=== PATIENT | female | born 1985 | race Caucasian/White ===

== ENCOUNTER 2017-05-01 15:05 | Emergency (ER) | payer MEDICAID ==
--- NOTE | 2017-05-01 15:46 | ER Document Report ---
ED GI/ - General Information source: Patient TRAVEL OUTSIDE OF THE [place] IN LAST 30 DAYS: No - HPI Patient complains to provider of: Abdominal pain, Diarrhea, Vomiting Onset: This morning Timing/Duration: Waxing and waning Associated symptoms: Other - see above <WILY FENTON - Last Filed: 05/01/17 17:42> <AJLEN BERMAN - Last Filed: 05/01/17 23:04> - General Chief Complaint: Abdominal Pain Stated Complaint: NAUSEA Time Seen by Provider: 05/01/17 15:42 Notes: Patient is a 31 year old female who presents to the ED with complaints of generalized abdominal pain (greater on left than right) with onset at 5 am that woke her up. Patient states she had nausea, vomiting and diarrhea that waxes and wanes. Patient denies any known fever. Patient has a history of a choleycystectomy. Patient states has mild back pain. Patient denies any difficultly with urination. Patient states she was drinking a lot last night but states that she does not normally have pain like this after drinking. No other concerns or complaints at this time. (WILY FENTON) - Related Data Allergies/Adverse Reactions: No Known Allergies Allergy (Verified 06/22/15 23:03) Past Medical History - General Information source: Patient - Social History Smoking Status: Current Every Day Smoker Frequency of alcohol use: Occasional Family History: Reviewed & Not Pertinent Patient has suicidal ideation: No Patient has homicidal ideation: No - Past Medical History Cardiac Medical History: Denies: Hx Coronary Artery Disease, Hx Heart Attack, Hx Hypertension Pulmonary Medical History: Denies: Hx Asthma, Hx Bronchitis, Hx COPD, Hx Pneumonia Neurological Medical History: Denies: Hx Cerebrovascular Accident, Hx Seizures Renal/ Medical History: Denies: Hx Peritoneal Dialysis GI Medical History: Denies: Hx Hepatitis, Hx Hiatal Hernia, Hx Ulcer Musculoskeltal Medical History: Denies Hx Arthritis Psychiatric Medical History: Reports: Hx Anxiety Infectious Medical History: Denies: Hx Hepatitis Past Surgical History: Reports: Hx Cholecystectomy, Hx Tubal Ligation. Denies: Hx Mastectomy, Hx Open Heart Surgery, Hx Pacemaker - Immunizations Hx Diphtheria, Pertussis, Tetanus Vaccination: Yes <WILY FENTON - Last Filed: 05/01/17 17:42> Review of Systems - Review of Systems Constitutional: See HPI. denies: Fever EENT: No symptoms reported Cardiovascular: No symptoms reported Respiratory: No symptoms reported Gastrointestinal: See HPI, Abdominal pain, Diarrhea, Nausea, Vomiting Genitourinary: See HPI. denies: Other - difficulty urinating Female Genitourinary: No symptoms reported Musculoskeletal: See HPI, Back pain Skin: No symptoms reported Hematologic/Lymphatic: No symptoms reported Neurological/Psychological: No symptoms reported <WILY FENTON - Last Filed: 05/01/17 17:42> Physical Exam - Vital signs Interpretation: Tachycardic - General General appearance: Alert In distress: None - Appears uncomfortable - HEENT Head: Normocephalic, Atraumatic Eyes: Normal Pupils: PERRL - Respiratory Respiratory status: No respiratory distress Chest status: Nontender Breath sounds: Normal Chest palpation: Normal - Cardiovascular Rhythm: Regular Heart sounds: Normal auscultation Murmur: No - Abdominal Inspection: Normal Distension: No distension Bowel sounds: Normal Tenderness: Tender - Mild diffuse Organomegaly: No organomegaly - Back Back: Normal, Nontender - Extremities General upper extremity: Normal inspection, Nontender, Normal color, Normal ROM , Normal temperature General lower extremity: Normal inspection, Nontender, Normal color, Normal ROM , Normal temperature, Normal weight bearing. No: Ian's sign - Neurological Neuro grossly intact: Yes Cognition: Normal Orientation: AAOx4 [place] Coma Scale Eye Opening: Spontaneous [place] Coma Scale Verbal: Oriented [place] Coma Scale Motor: Obeys Commands [place] Coma Scale Total: 15 Speech: Normal Motor strength normal: LUE, RUE, LLE, RLE Sensory: Normal - Psychological Associated symptoms: Normal affect, Normal mood - Skin Skin Temperature: Warm Skin Moisture: Dry Skin Color: Normal <JALEN BERMAN - Last Filed: 05/01/17 23:04> - Vital signs Vitals: Temp Pulse Resp BP Pulse Ox 98 F 103 H 15 140/88 H 97 05/01/17 15:22 05/01/17 15:22 05/01/17 15:22 05/01/17 15:22 05/01/17 15:22 Course - Laboratory Result Diagrams: 05/01/17 16:13 05/01/17 16:13 <WILY FENTON - Last Filed: 05/01/17 17:42> - Laboratory Result Diagrams: 05/01/17 16:13 05/01/17 16:13 - Diagnostic Test Radiology reviewed: Reports reviewed <JALEN BERMAN - Last Filed: 05/01/17 23:04> - Re-evaluation Re-evalutation: 05/01/17 17:39 Patient symptoms are improved and she has been updated on her results. (WILY FENTON) 05/01/17 18:40 Patient is feeling worse at this time. Medication and scan ordered. 05/01/17 19:46 No acute findings on CT. Patient's pain is controlled. She has been able to take p.o. and would like to go home. Taking antibiotics for UTI. Return if any worsening or concerning symptoms will appears to be gastritis at this time. Stable for discharge. (JALEN BERMAN) - Vital Signs Vital signs: Temp Pulse Resp BP Pulse Ox 98 F 75 18 132/75 H 97 05/01/17 18:39 05/01/17 18:39 05/01/17 18:39 05/01/17 18:39 05/01/17 18:39 - Laboratory Laboratory results interpreted by me: 05/01/17 05/01/17 16:13 16:50 Seg Neutrophils % 79.1 H Ur Leukocyte Esterase MODERATE H Discharge <WILY FENTON - Last Filed: 05/01/17 17:42> <JALEN BERMAN - Last Filed: 05/01/17 23:04> - Discharge Clinical Impression: Gastritis Qualifiers: Gastritis type: unspecified gastritis Chronicity: unspecified Gastritis bleeding: without bleeding Qualified Code(s): K29.70 - Gastritis, unspecified, without bleeding UTI (urinary tract infection) Qualifiers: Urinary tract infection type: site unspecified Hematuria presence: without hematuria Qualified Code(s): N39.0 - Urinary tract infection, site not specified Condition: Stable Disposition: HOME, SELF-CARE Instructions: Gastritis ([facility]), Urinary Tract Infection ([facility]) Prescriptions: Cephalexin Monohydrate [Keflex 500 mg Capsule] 500 mg PO QID #20 capsule Famotidine [Pepcid 20 mg Tablet] 20 mg PO DAILY #30 tablet Sucralfate [Carafate 1 gm Tablet] 1 gm PO ACHS #30 tablet Forms: Return to Work Scribe Attestation: 05/01/17 23:03 I personally performed the services described in the documentation, reviewed and edited the documentation which was dictated to the scribe in my presence, and it accurately records my words and actions. (JALEN BERMAN) Scribe Documentation - Scribe Written by Dina:: dina Mcqueen, 05/01/2017, 1628 acting as scribe for :: Román <WILY FENTON - Last Filed: 05/01/17 17:42>
[2017-05-01] MEDS ORDERED: ONDANSETRON HCL INJ/PF 4 MG/2 ML SDV IV ONE (15:47)
[2017-05-01] MEDS ORDERED: NORMAL SALINE 1000 ML 1,000 ML IV ONE (15:47)
[2017-05-01] MEDS ORDERED: MORPHINE SULFATE 10 MG/ML INJ IV ONE ×2 (16:04→18:48)
[2017-05-01 16:29] LABS: ABSOLUTE LYMPHOCYTES (AUTO) 1.5 10^3/uL (0.5-4.7); ABSOLUTE MONOCYTES (AUTO) 0.5 10^3/uL (0.1-1.4); ABSOLUTE NEUT (AUTO) 7.7 10^3/uL (1.7-8.2); BASOPHILS % (AUTO) 0.3 % (0-2); EOSINOPHILS % (AUTO) 0.5 % (0-6); HEMATOCRIT 42.6 % (36.0-47.0); HEMOGLOBIN 14.3 g/dL (12.0-15.5); HGB HCT DIFFERENCE 0.3; LYMPHOCYTES % (AUTO) 15.4 % (13-45); MEAN CORPUSCULAR HEMOGLOBIN 30.1 pg (27.0-33.4); MEAN CORPUSCULAR HGB CONC 33.5 g/dL (32.0-36.0); MEAN CORPUSCULAR VOLUME 90 fl (80-97); MONOCYTES % (AUTO) 4.7 % (3-13); RED BLOOD COUNT 4.73 10^6/uL (3.72-5.28); RED CELL DISTRIBUTION WIDTH 13.8 % (11.5-14.0); SEGMENTED NEUTROPHILS % (AUTO) 79.1 % (42-78); WHITE BLOOD COUNT 9.8 10^3/uL (4.0-10.5)
[2017-05-01 16:47] LABS: ALANINE AMINOTRANSFERASE 35 U/L (9-52); ALBUMIN 3.9 g/dL (3.5-5.0); ALKALINE PHOSPHATASE 81 U/L (38-126); ANION GAP 10 (5-19); ASPARTATE AMINO TRANSFERASE 16 U/L (14-36); BILIRUBIN,DIRECT 0.3 mg/dL (0.0-0.4); BILIRUBIN,TOTAL 0.6 mg/dL (0.2-1.3); BLOOD UREA NITROGEN 11 mg/dL (7-20); CALCIUM 9.5 mg/dL (8.4-10.2); CARBON DIOXIDE 25 mmol/L (22-30); CHLORIDE 106 mmol/L (98-107); CREATININE RESULT 0.74 mg/dL (0.52-1.25); GLUCOSE 102 mg/dL (75-110); LIPASE 56.5 U/L (23-300); POTASSIUM 4.1 mmol/L (3.6-5.0); SODIUM 140.5 mmol/L (137-145); TOTAL PROTEIN 6.5 g/dL (6.3-8.2)
[2017-05-01 17:11] LABS: APPEARANCE,URINE SLIGHTLY-CLOUDY; BILIRUBIN,URINE NEGATIVE (NEGATIVE); GLUCOSE, URINE NEGATIVE (NEGATIVE); KETONES,URINE NEGATIVE (NEGATIVE); LEUKOCYTE ESTERASE,URINE MODERATE (NEGATIVE); NITRITE,URINE NEGATIVE (NEGATIVE); PROTEIN,URINE NEGATIVE (NEGATIVE); URINE SPECIFIC GRAVITY 1.025; UROBILINOGEN,URINE NEGATIVE mg/dL (<2.0)
[2017-05-01] MEDS ORDERED: CEFTRIAXONE 1 GM/D5W RTU 50 ML IV ONE (17:33)
[2017-05-01] MEDS ORDERED: FAMOTIDINE 20 MG TABLET PO ONE (17:42)
[2017-05-01] MEDS ORDERED: SUCRALFATE 1 GM TABLET PO ONE (17:42)
[2017-05-01] MEDS ORDERED: DICYCLOMINE HCL 20 MG TABLET PO ONE (18:36)
[2017-05-01 18:40] VITALS: BP 132/75
--- NOTE | 2017-05-01 19:18 | RADIOLOGY REPORT (SQ) ---
EXAM DESCRIPTION: CT LTD RENAL STONE PROTOCOL ON COMPLETED DATE/TIME: 05/01/2017 6:54 pm REASON FOR STUDY: abd pain COMPARISON: None. TECHNIQUE: CT scan of the abdomen and pelvis performed without intravenous or oral contrast. Images reviewed with lung, soft tissue, and bone windows. Reconstructed coronal and sagittal MPR images revi ewed. All images stored on PACS. All CT scanners at this facility use dose modulation, iterative reconstruction, and/or weight based d osing when appropriate to reduce radiation dose to as low as reasonably achievable (ALARA). [facility]: Dose Right [facility]: CareDose [facility]: Dose Right [facility]: Teradose 4D [facility]: [employer] RADIATION DOSE: Up-to-date CT equipment and radiation dose reduction techniques were employed. CTDIv ol: 17.2 mGy. DLP: 939 mGy-cm.mGy. LIMITATIONS: None. FINDINGS: LOWER CHEST: No significant findings. No nodules or infiltrates. NON-CONTRASTED LIVER, SPLEEN, ADRENALS: Evaluation limited by lack of IV contrast. No identified sign ificant masses. PANCREAS: No masses. No peripancreatic inflammatory changes. GALLBLADDER: Surgically absent. RIGHT KIDNEY AND URETER: No suspicious masses. Assessment limited by lack of IV contrast. No signif icant calcifications. No hydronephrosis or hydroureter. LEFT KIDNEY AND URETER: No suspicious masses. Assessment limited by lack of IV contrast. No signifi cant calcifications. No hydronephrosis or hydroureter. AORTA AND RETROPERITONEUM: No aneurysm. No retroperitoneal masses or adenopathy. BOWEL AND PERITONEAL CAVITY: No obvious masses or inflammatory changes. No free fluid. APPENDIX: Normal. PELVIS, BLADDER, AND ABDOMINAL WALL:No abnormal masses. No free fluid. Bladder normal. BONES: No significant findings. OTHER: No other significant finding. IMPRESSION: NO SIGNIFICANT OR ACUTE PROCESS IN THE ABDOMEN OR PELVIS. TECHNICAL DOCUMENTATION: JOB ID: [id number] Quality ID # [id number]: Final reports with documentation of one or more dose reduction techniques (e.g., Au tomated exposure control, adjustment of the mA and/or kV according to patient size, use of iterative reconstruction technique) 2010 [employer]- All Rights Reserved
[2017-05-01] MEDS ORDERED: ONDANSETRON ODT 4 MG TAB (6 TAB/DSPK) PO PRN (19:46)
[2017-05-01] MEDS ORDERED: HYDROCODONE/ACETAMINOPHEN 5-325 MG 6 TAB/DSPK PO PRN (19:46)
== END 2017-05-01 19:50 | disposition home or self-care (01) ==
LOC: ER 15:05
DX: K29.70 Gastritis, unspecified, without bleeding (principal); N39.0 Urinary tract infection, site not specified; R10.84 Generalized abdominal pain; R11.2 Nausea with vomiting, unspecified; R19.7 Diarrhea, unspecified; R00.0 Tachycardia, unspecified; M54.9 Dorsalgia, unspecified; F17.200 Nicotine dependence, unspecified, uncomplicated; Z90.49 Acquired absence of other specified parts of digestive tract; Z98.51 Tubal ligation status
CPT/HCPCS: 96376; 99284; 96375; 96365; 36415; 87086; 84702; 83690; 85025; 80053; 81001; 76380; J3490; J2270; J2405; J7030; J0696

== ENCOUNTER 2018-03-06 16:41 | Emergency (ER) | payer MEDICAID ==
--- NOTE | 2018-03-06 17:38 | ER Document Report ---
ED Medical Screen (RME) - General Chief Complaint: Chest Pain Stated Complaint: CHEST PAIN Time Seen by Provider: 03/06/18 17:31 Notes: RAPID MEDICAL EVALUATION DISCLOSURE I have seen this patient as part of a Rapid Medical Evaluation and, if applicable, placed any initially appropriate orders. The patient will be seen and fully evaluated, including a full history and physical exam, by a provider ( in Main ED or Fast Track) when a room becomes available. 32-year-old female here with complaints of chest pain palpitations shortness of breath lightheadedness ongoing for the past 1 week after starting buspirone ( patient does not know why she was put on this medication). The symptoms are not worse with exertion but in fact chest pain worsens with sitting down and resting. She has not tried taking anything for the symptoms. She denies any nausea vomiting diaphoresis. Denies diabetes hypertension hyperlipidemia. No prior history of similar. EXAM CTAB RRR TRAVEL OUTSIDE OF THE [place] IN LAST 30 DAYS: No - Related Data Allergies/Adverse Reactions: No Known Allergies Allergy (Verified 06/22/15 23:03) Past Medical History - Past Medical History Cardiac Medical History: Denies: Hx Coronary Artery Disease, Hx Heart Attack, Hx Hypertension Pulmonary Medical History: Denies: Hx Asthma, Hx Bronchitis, Hx COPD, Hx Pneumonia Neurological Medical History: Denies: Hx Cerebrovascular Accident, Hx Seizures Renal/ Medical History: Denies: Hx Peritoneal Dialysis GI Medical History: Denies: Hx Hepatitis, Hx Hiatal Hernia, Hx Ulcer Musculoskeltal Medical History: Denies Hx Arthritis Psychiatric Medical History: Reports: Hx Anxiety Infectious Medical History: Denies: Hx Hepatitis Past Surgical History: Reports: Hx Cholecystectomy, Hx Tubal Ligation. Denies: Hx Mastectomy, Hx Open Heart Surgery, Hx Pacemaker - Immunizations Hx Diphtheria, Pertussis, Tetanus Vaccination: Yes Physical Exam - Vital signs Vitals: Temp Pulse Resp BP Pulse Ox 98.7 F 93 16 136/84 H 98 03/06/18 17:18 03/06/18 17:18 03/06/18 17:18 03/06/18 17:18 03/06/18 17:18 Course - Vital Signs Vital signs: Temp Pulse Resp BP Pulse Ox 98.7 F 93 16 136/84 H 98 03/06/18 17:18 03/06/18 17:18 03/06/18 17:18 03/06/18 17:18 03/06/18 17:18
--- NOTE | 2018-03-06 18:36 | RADIOLOGY REPORT (SQ) ---
EXAM DESCRIPTION: CHEST 2 VIEWS COMPLETED DATE/TIME: 03/06/2018 6:14 pm REASON FOR STUDY: CP SOB lightheaded COMPARISON: None. EXAM PARAMETERS: NUMBER OF VIEWS: two views TECHNIQUE: Digital Frontal and Lateral radiographic views of the chest acquired. RADIATION DOSE: NA LIMITATIONS: none FINDINGS: LUNGS AND PLEURA: No opacities, masses or pneumothorax. No pleural effusion. MEDIASTINUM AND HILAR STRUCTURES: No masses or contour abnormalities. HEART AND VASCULAR STRUCTURES: Heart normal size. No evidence for failure. BONES: No acute findings. HARDWARE: None in the chest. OTHER: No other significant finding. IMPRESSION: NO ACUTE RADIOGRAPHIC FINDING IN THE CHEST. TECHNICAL DOCUMENTATION: JOB ID: [id number] [employer]- All Rights Reserved Reading location - IP/workstation name: [email or web address]
[2018-03-06 19:06] LABS: ABSOLUTE EOSINOPHILS # (AUTO) 0.1 10^3/uL (0.0-0.6); ABSOLUTE LYMPHOCYTES (AUTO) 2.7 10^3/uL (0.5-4.7); ABSOLUTE MONOCYTES (AUTO) 0.7 10^3/uL (0.1-1.4); ABSOLUTE NEUT (AUTO) 7.7 10^3/uL (1.7-8.2); BASOPHILS % (AUTO) 0.3 % (0-2); HEMATOCRIT 41.8 % (36.0-47.0); HEMOGLOBIN 13.8 g/dL (12.0-15.5); MEAN CORPUSCULAR HEMOGLOBIN 29.7 pg (27.0-33.4); MEAN CORPUSCULAR HGB CONC 32.9 g/dL (32.0-36.0); MEAN CORPUSCULAR VOLUME 90 fl (80-97); MONOCYTES % (AUTO) 6.3 % (3-13); PLATELET COUNT 300 10^3/uL (150-450); RED BLOOD COUNT 4.64 10^6/uL (3.72-5.28); RED CELL DISTRIBUTION WIDTH 14.3 % (11.5-14.0); SEGMENTED NEUTROPHILS % (AUTO) 68.4 % (42-78); TOTAL CELLS COUNTED % (AUTO) 100 %; WHITE BLOOD COUNT 11.2 10^3/uL (4.0-10.5)
[2018-03-06 19:27] LABS: ANION GAP 13 (5-19); BLOOD UREA NITROGEN 13 mg/dL (7-20); CARBON DIOXIDE 26 mmol/L (22-30); CHLORIDE 105 mmol/L (98-107); GLUCOSE 96 mg/dL (75-110); PHOSPHORUS 4.2 mg/dL (2.5-4.5); POTASSIUM 4.5 mmol/L (3.6-5.0); SODIUM 143.8 mmol/L (137-145)
--- NOTE | 2018-03-06 20:11 | EKG REPORT ---
SEVERITY:- BORDERLINE ECG - SINUS RHYTHM PROBABLE LEFT ATRIAL ABNORMALITY : Confirmed by: Jann Zarco 06-Mar-2018 20:10:05
--- NOTE | 2018-03-06 21:19 | ER Document Report ---
ED General - General Chief Complaint: Chest Pain Stated Complaint: CHEST PAIN Time Seen by Provider: 03/06/18 17:31 Notes: Patient is a 32-year-old female without chronic medical problems who presents with approximately 1 week of intermittent chest discomfort with associated shortness of breath. Patient states that it occurs twice daily usually approximate 45 minutes to one hour after she takes buspirone. She states she was recently started on this medication but she is uncertain of why. She notes that she only expresses these symptoms directly after taking this medication and they do spontaneously resolved. She describes the chest discomfort as a sensation of heaviness as well as some mild shortness of breath. She has not followed up with a doctor who prescribed the medication. She denies any history of similar symptoms in the past. She denies any history of DVT, pulmonary embolus or cardiac disease. She denies any current symptoms and states she would like to go home. TRAVEL OUTSIDE OF THE [place] IN LAST 30 DAYS: No - Related Data Allergies/Adverse Reactions: No Known Allergies Allergy (Verified 06/22/15 23:03) Past Medical History - General Information source: Patient - Social History Smoking Status: Current Every Day Smoker Frequency of alcohol use: Social Drug Abuse: None Lives with: Alone Family History: Reviewed & Not Pertinent Patient has suicidal ideation: No Patient has homicidal ideation: No - Past Medical History Cardiac Medical History: Denies: Hx Coronary Artery Disease, Hx Heart Attack, Hx Hypertension Pulmonary Medical History: Denies: Hx Asthma, Hx Bronchitis, Hx COPD, Hx Pneumonia Neurological Medical History: Denies: Hx Cerebrovascular Accident, Hx Seizures Renal/ Medical History: Denies: Hx Peritoneal Dialysis GI Medical History: Denies: Hx Hepatitis, Hx Hiatal Hernia, Hx Ulcer Musculoskeltal Medical History: Denies Hx Arthritis Psychiatric Medical History: Reports: Hx Anxiety Infectious Medical History: Denies: Hx Hepatitis Past Surgical History: Reports: Hx Cholecystectomy, Hx Tubal Ligation. Denies: Hx Mastectomy, Hx Open Heart Surgery, Hx Pacemaker - Immunizations Hx Diphtheria, Pertussis, Tetanus Vaccination: Yes Review of Systems - Review of Systems Notes: Constitutional: Negative for fever. HENT: Negative for sore throat. Eyes: Negative for visual changes. Cardiovascular: Positive for chest pain. Respiratory: Positive for shortness of breath. Gastrointestinal: Negative for abdominal pain, vomiting or diarrhea. Genitourinary: Negative for dysuria. Musculoskeletal: Negative for back pain. Skin: Negative for rash. Neurological: Negative for headaches, weakness or numbness. 10 point ROS negative except as marked above and in HPI. Physical Exam - Vital signs Vitals: Temp Pulse Resp BP Pulse Ox 98.7 F 93 16 136/84 H 98 03/06/18 17:18 03/06/18 17:18 03/06/18 17:18 03/06/18 17:18 03/06/18 17:18 Interpretation: Normal Notes: PHYSICAL EXAMINATION: GENERAL: Well-appearing, well-nourished and in no acute distress. HEAD: Atraumatic, normocephalic. EYES: Pupils equal round and reactive to light, extraocular movements intact, sclera anicteric, conjunctiva are normal. ENT: nares patent, oropharynx clear without exudates. Moist mucous membranes. NECK: Normal range of motion, supple without lymphadenopathy LUNGS: Breath sounds clear to auscultation bilaterally and equal. No wheezes rales or rhonchi. HEART: Regular rate and rhythm without murmurs ABDOMEN: Soft, nontender, normoactive bowel sounds. No guarding, no rebound. No masses appreciated. EXTREMITIES: Normal range of motion, no pitting or edema. No cyanosis. NEUROLOGICAL: No focal neurological deficits. Moves all extremities spontaneously and on command. PSYCH: Normal mood, normal affect. SKIN: Warm, Dry, normal turgor, no rashes or lesions noted. Course - Re-evaluation Re-evalutation: 03/06/18 21:17 Presentation of chest pain in an otherwise well appearing patient. Low clinical suspicion for ACS given clinical history, exam, EKG without ST elevations or depressions, and negative initial troponin. HEART score less than or equal to 3. PE also seems unlikely given clinical history, absence of tachycardia or dyspnea. Patient is PERC criteria negative. CXR without evidence of pneumothorax or pneumonia. No widened mediastinum. Aortic dissection also seems unlikely given history, symmetric pulses, CXR, and vitals. Patient reports that the symptoms are intermittent in nature, occur only 1 hour after she takes her buspirone and have only been occurring in that timeframe since she started this medication. It is possible that she is having an adverse event to this medication and I have encouraged her to discontinue it given the nature of her symptoms. At this time will discharge with return precautions and follow-up recommendations. Verbal discharge instructions given a the bedside and opportunity for questions given. Medication warnings reviewed. Patient is in agreement with this plan and has verbalized understanding of return precautions and the need for primary care follow-up in the next 24-72 hours. - Vital Signs Vital signs: Temp Pulse Resp BP Pulse Ox 98.0 F 58 L 16 134/84 H 98 03/06/18 21:53 03/06/18 21:53 03/06/18 21:53 03/06/18 21:53 03/06/18 21:53 - Laboratory Result Diagrams: 03/06/18 18:50 03/06/18 18:50 Laboratory results interpreted by me: 03/06/18 18:50 WBC 11.2 H RDW 14.3 H - Diagnostic Test Radiology reviewed: Image reviewed, Reports reviewed Radiology results interpreted by me: 03/06/18 21:17 Chest x-ray: No acute infiltrate or pneumothorax - EKG Interpretation by Me Additional EKG results interpreted by me: 03/06/18 21:18 Sinus rhythm. Rate 86. No ST elevations or depressions. QTC is 421. Discharge - Discharge Clinical Impression: Palpitations Chest pain Qualifiers: Chest pain type: unspecified Qualified Code(s): R07.9 - Chest pain, unspecified Condition: Good Disposition: HOME, SELF-CARE Additional Instructions: You were seen today for chest pain. The exact cause of your pain is unclear. However, based on your cardiac enzyme testing, chest x-ray, and EKG it does not appear that it is from an immediately life-threatening cause at this time. Please discontinue the buspirone as this may be causing your symptoms given what we discussed today. Please return to emergency department immediately if you have worsening of your chest pain, shortness of breath, vomiting, become unable to exert yourself due to pain or difficulty breathing, you pass out, or have any pain that radiates into your arms, jaw, or back. Please also return if you have any additional symptoms that are concerning to you.
[2018-03-06 21:55] VITALS: BP 134/84
== END 2018-03-06 21:54 | disposition home or self-care (01) ==
LOC: ER 16:41
DX: R07.9 Chest pain, unspecified (principal); R06.02 Shortness of breath; F41.9 Anxiety disorder, unspecified; R00.2 Palpitations; F17.200 Nicotine dependence, unspecified, uncomplicated
CPT/HCPCS: 36415; 71046; 80048; 83735; 84100; 84443; 84484; 85025; 93005; 93010; 99285

== ENCOUNTER 2020-03-11 17:55 | Emergency (ER) | payer SELFPAY ==
[2020-03-11] MEDS ORDERED: NORMAL SALINE 1000 ML 1,000 ML with POTASSIUM CHLORIDE 20 MEQ, MAGNESIUM SULFATE 8 MEQ,... IV SCH ×10 (18:00→19:30)
--- NOTE | 2020-03-11 18:02 | ER Document Report ---
ED Medical Screen (RME) - General Chief Complaint: S/S of Possible Stroke Stated Complaint: STROKE SYMPTOMS Time Seen by Provider: 03/11/20 17:59 Primary Care Provider: [facility] [Provider Group] - Follow up as needed Mode of Arrival: Wheelchair Information source: Patient Notes: 34-year-old female presented to ED for complaint and numbness to the face drawing up right hand unable to move the fingers in the right hand. She states she woke up this way unable to move the hand. She also has numbness to the right arm. Is alert and oriented able to answer questions appropriately. There is no facial droop. Her tongue is centered. She is able to raise both arms but is unable to straighten the fingers or unclamp the hand. I have greeted and performed a rapid initial assessment of this patient. A comprehensive ED assessment and evaluation of the patient, analysis of test results and completion of medical decision making process will be conducted by an additional ED providers. TRAVEL OUTSIDE OF THE [place] IN LAST 30 DAYS: No - Related Data Allergies/Adverse Reactions: No Known Allergies Allergy (Verified 06/22/15 23:03) Past Medical History - Past Medical History Cardiac Medical History: Denies: Hx Coronary Artery Disease, Hx Heart Attack, Hx Hypertension Pulmonary Medical History: Denies: Hx Asthma, Hx Bronchitis, Hx COPD, Hx Pneumonia Neurological Medical History: Denies: Hx Cerebrovascular Accident, Hx Seizures Renal/ Medical History: Denies: Hx Peritoneal Dialysis GI Medical History: Denies: Hx Hepatitis, Hx Hiatal Hernia, Hx Ulcer Musculoskeltal Medical History: Denies Hx Arthritis Psychiatric Medical History: Reports: Hx Anxiety Infectious Medical History: Denies: Hx Hepatitis Past Surgical History: Reports: Hx Cholecystectomy, Hx Tubal Ligation. Denies: Hx Mastectomy, Hx Open Heart Surgery, Hx Pacemaker - Immunizations Hx Diphtheria, Pertussis, Tetanus Vaccination: Yes Physical Exam - Vital signs Vitals: Temp 98.9 F 03/11/20 17:56 Course - Vital Signs Vital signs: Temp Pulse Resp BP Pulse Ox 98.1 F 91 18 138/86 H 97 03/11/20 22:14 03/11/20 22:14 03/11/20 22:14 03/11/20 22:14 03/11/20 22:14 - Laboratory Result Diagrams: 03/11/20 18:10 03/11/20 18:10 Laboratory results interpreted by me: 03/11/20 03/11/20 03/11/20 18:10 18:10 18:10 APTT 23.1 L Sodium 135.8 L Magnesium 2.4 H Urine Protein Urine Ketones Urine Ascorbic Acid 03/11/20 19:20 APTT Sodium Magnesium Urine Protein 30 H Urine Ketones TRACE H Urine Ascorbic Acid 20 H Doctor's Discharge - Discharge Clinical Impression: Muscular spasm right upper extremity Condition: Stable Disposition: HOME, SELF-CARE Additional Instructions: Take prescribed medications as directed. Return here as needed for new or worsening symptoms. Do not drive an automobile until you have been reevaluated by referral physician. Follow-up with referral physician as instructed. Prescriptions: Lorazepam [Ativan 0.5 mg Tablet] 0.5 mg PO TID PRN #21 tab PRN Reason: Naproxen 500 mg PO BID PRN 7 Days #14 tablet PRN Reason: Referrals: [facility] [Provider Group] - Follow up as needed
--- NOTE | 2020-03-11 18:15 | RADIOLOGY REPORT (SQ) ---
EXAM DESCRIPTION: CHEST SINGLE VIEW IMAGES COMPLETED DATE/TIME: 03/11/2020 6:05 pm REASON FOR STUDY: stroke alert COMPARISON: 03/06/2020 EXAM PARAMETERS: NUMBER OF VIEWS: One view. TECHNIQUE: Single frontal radiographic view of the chest acquired. RADIATION DOSE: NA LIMITATIONS: None. FINDINGS: LUNGS AND PLEURA: No opacities, masses or pneumothorax. No pleural effusion. MEDIASTINUM AND HILAR STRUCTURES: No masses. Contour normal. HEART AND VASCULAR STRUCTURES: Heart normal in size. Normal vasculature. BONES: No acute findings. HARDWARE: None in the chest. OTHER: No other significant finding. IMPRESSION: 1. No significant interval changes since the prior examination dated 03/06/2018. No acu te findings. TECHNICAL DOCUMENTATION: JOB ID: [id number] 2010 [email or web address]- All Rights Reserved Reading location - IP/workstation name: [email or web address]
[2020-03-11 18:21] LABS: ABSOLUTE BASOPHILS # (AUTO) 0.1 10^3/uL (0.0-0.2); ABSOLUTE EOSINOPHILS # (AUTO) 0.1 10^3/uL (0.0-0.6); ABSOLUTE LYMPHOCYTES (AUTO) 3.3 10^3/uL (0.5-4.7); ABSOLUTE MONOCYTES (AUTO) 0.7 10^3/uL (0.1-1.4); ABSOLUTE NEUT (AUTO) 6.2 10^3/uL (1.7-8.2); BASOPHILS % (AUTO) 0.6 % (0-2); EOSINOPHILS % (AUTO) 1.1 % (0-6); HEMATOCRIT 43.4 % (36.0-47.0); HEMOGLOBIN 15.3 g/dL (12.0-15.5); MEAN CORPUSCULAR HEMOGLOBIN 32.5 pg (27.0-33.4); MEAN CORPUSCULAR HGB CONC 35.3 g/dL (32.0-36.0); MEAN CORPUSCULAR VOLUME 92 fl (80-97); MONOCYTES % (AUTO) 6.5 % (3-13); PLATELET COUNT 350 10^3/uL (150-450); RED BLOOD COUNT 4.72 10^6/uL (3.72-5.28); RED CELL DISTRIBUTION WIDTH 13.2 % (11.5-14.0); SEGMENTED NEUTROPHILS % (AUTO) 59.8 % (42-78); TOTAL CELLS COUNTED % (AUTO) 100 %; WHITE BLOOD COUNT 10.4 10^3/uL (4.0-10.5)
[2020-03-11] MEDS ORDERED: LORAZEPAM INJ 2 MG/1 ML VIAL IV ONE (18:21)
--- NOTE | 2020-03-11 18:23 | RADIOLOGY REPORT (SQ) ---
EXAM DESCRIPTION: CT HEAD WITHOUT IMAGES COMPLETED DATE/TIME: 03/11/2020 6:08 pm REASON FOR STUDY: stroke alert COMPARISON: None. TECHNIQUE: Axial images acquired through the brain without intravenous contrast. Images reviewed wi th bone, brain and subdural windows. Additional sagittal and coronal reconstructions were generated. Images stored on PACS. All CT scanners at this facility use dose modulation, iterative reconstruction, and/or weight based d osing when appropriate to reduce radiation dose to as low as reasonably achievable (ALARA). [facility]: Dose Right [facility]: CareDose [facility]: Dose Right [facility]: Teradose 4D [facility]: Cloud [employer] RADIATION DOSE: Total exam DLP: 963.96 mGy. LIMITATIONS: None. FINDINGS: VENTRICLES: Normal size and contour. The cisterns are patent. CEREBRUM: No masses. No hemorrhage. No midline shift. No evidence for acute infarction. Normal gra y/white matter differentiation. No areas of low density in the white matter. CEREBELLUM: No masses. No hemorrhage. No alteration of density. No evidence for acute infarction. EXTRAAXIAL SPACES: No fluid collections. No masses. ORBITS AND GLOBE: No intra- or extraconal masses. Normal contour of globe without masses. CALVARIUM: No fracture. PARANASAL SINUSES: No fluid or mucosal thickening. Deviation of the nasal septum to the right of the midline. SOFT TISSUES: No mass or hematoma. OTHER: No other significant finding. IMPRESSION: 1. No acute intracranial abnormality. 2. If clinically indicated, further evaluation with additional imaging, MRI Brain may be helpful. EVIDENCE OF ACUTE STROKE: NO. COMMENT: 1. The results of this examination were discussed with the emergency department manager of corporate o n 03/11/2020 and 18:16 hours. Quality ID # [id number]: Final reports with documentation of one or more dose reduction techniques (e.g., Au tomated exposure control, adjustment of the mA and/or kV according to patient size, use of iterative reconstruction technique) TECHNICAL DOCUMENTATION: JOB ID: [id number] 2010 [employer]- All Rights Reserved Reading location - IP/workstation name: [email or web address]
[2020-03-11 18:26] LABS: INTERNATIONAL RATION (INR) 0.97; PARTIAL THROMBOPLASTIN TIME 23.1 SEC (23.5-35.8); PROTHROMBIN TIME 12.9 SEC (11.4-15.4)
--- NOTE | 2020-03-11 18:28 | ER Document Report ---
ED General - General Chief Complaint: S/S of Possible Stroke Stated Complaint: STROKE SYMPTOMS Time Seen by Provider: 03/11/20 17:59 Mode of Arrival: Wheelchair TRAVEL OUTSIDE OF THE [place] IN LAST 30 DAYS: No - HPI Notes: Chief complaint: Spasm, weakness and paresthesias right hand and twitching right facial area History of present illness: 34-year-old female cigarette smoker in good general health with no current primary care physician states that she had done "some drinking" last night although she was reluctant to specify quantity and she apparently stayed up late and vomited several times. She laid down in her bed a nd went to sleep. She did not wake up until about noon today. She says she still felt mildly nauseated. Sometime between noon and 1 PM she got out of bed and at that time noticed that she was having some twitching and paresthesias right facial area and similar symptoms involving her distal right forearm and right hand and wrist. She also noted that the fingers on her right hand were drawn into a fist and that she could not extend these and had pain if she attempted to do so. Symptoms have persisted. She denies any changes in her eyesight, difficulty swallowing, difficulty speaking or difficulty standing or walking. The tingling of her face and twitching of the right side of her face h as resolved. Symptoms involving the distal right upper extremity persist. She denies any perceived trauma and says that she does not feel that she slept in an abnormal position. Patient denies any history of seizures. She denies any history of stroke or TIA. Patient denies fever. Patient denies headache. 1 pack/day smoker. Alcohol consumption is noted. Occasional use of marijuana. Denies any other drug use. - Related Data Allergies/Adverse Reactions: No Known Allergies Allergy (Verified 06/22/15 23:03) Past Medical History - General Information source: Patient - Social History Smoking Status: Current Every Day Smoker Frequency of alcohol use: Social Drug Abuse: Marijuana Lives with: Family Family History: Reviewed & Not Pertinent Patient has homicidal ideation: No - Past Medical History Cardiac Medical History: Denies: Hx Coronary Artery Disease, Hx Heart Attack, Hx Hypertension Pulmonary Medical History: Denies: Hx Asthma, Hx Bronchitis, Hx COPD, Hx Pneumonia Neurological Medical History: Denies: Hx Cerebrovascular Accident, Hx Migraine, Hx Seizures Renal/ Medical History: Denies: Hx Peritoneal Dialysis GI Medical History: Denies: Hx Hepatitis, Hx Hiatal Hernia, Hx Ulcer Musculoskeletal Medical History: Denies Hx Arthritis Psychiatric Medical History: Reports: Hx Anxiety Infectious Medical History: Denies: Hx Hepatitis Past Surgical History: Reports: Hx Cholecystectomy, Hx Tubal Ligation. Denies: Hx Mastectomy, Hx Open Heart Surgery, Hx Pacemaker - Immunizations Hx Diphtheria, Pertussis, Tetanus Vaccination: Yes Review of Systems - Review of Systems Notes: Constitutional: Negative for fever. HENT: Negative for sore throat. Eyes: Negative for visual changes. Cardiovascular: Negative for chest pain. Respiratory: Negative for shortness of breath. Gastrointestinal: As per HPI. Genitourinary: Negative for dysuria. Musculoskeletal: As per HPI. Skin: Negative for rash. Neurological: As per HPI. 10 point ROS negative except as marked above and in HPI. Physical Exam - Vital signs Vitals: Temp 98.9 F 03/11/20 17:56 - Notes Notes: GENERAL: Well-developed well-nourished female approximately stated age appearing anxious but otherwise in no acute distress. SKIN: Good turgor no rashes. HEAD: Normocephalic atraumatic. EYES: PERRLA. EOMI. Conjunctivae and sclerae clear. EARS: CANALS AND TMS CLEAR. NOSE: CLEAR. MOUTH: Moist mucosa. Good dentition. No stridor or edema. No drooling. NECK: Supple. No masses or thyromegaly. No adenopathy. Carotids 2+ without bruits. No JVD. BACK: Symmetrical without tenderness. CHEST: Respirations unlabored. Breath sounds clear and symmetrical. HEART: Regular rhythm. No murmur gallop or rub. ABDOMEN: Soft nontender without masses, organomegaly or rebound. Bowel sounds normally active. No bruits. GENITALIA: Deferred. EXTREMITIES: Patient has fingers of her right hand drawn into a tight fist and resists movement of these complaining of pain. There is no visible swelling or redness. Radial and ulnar pulses normal. Capillary refill is normal. No edema. No calf tenderness. Cap refill less than 1.5 seconds. Dorsalis pedis and posterior tibial pulses 3+ and symmetrical. NEUROLOGICAL: GCS 15. Alert and oriented x3. Normal gait. Fluent speech. Cranial nerves II through XII intact. Sensation is intact throughout. No motor drift of upper or lower extremities. Patient performs finger-nose testing without difficulty. Resists any passive extension of fingers right hand secondary to pain and says she cannot voluntarily extend the fingers on the right hand. PSYCHIATRIC: Anxious affect. Course - Re-evaluation Re-evalutation: 03/11/20 19:07 Initial presentation was not strongly indicative of a stroke. I was more concerned about a possible metabolic disturbance, focal seizure activity or a compression neuropathy. I gave patient a small amount of IV Ativan 0.5 mg and the spasticity of the hand immediately resolved and she felt better. Noncontrast head CT reported as negative per radiologist. I am going to go ahead and get a brain MRI for her and anticipate we should be able to discharge her home if this is normal. 03/11/20 21:45 MRI reported as normal by radiologist. Her electrolytes and magnesium were normal. She has had no recurrence of symptoms since administration of Ativan. I think the patient can safely be discharged at this time. We will send her out on an NSAID and several days of treatment with low-dose Ativan. She is to follow-up with primary care physician and neurology for further outpatient evaluation may return here for any new or worsening symptoms. Findings and recommendations have been discussed with the patient and she expresses understanding and agreement. - Vital Signs Vital signs: Temp Pulse Resp BP Pulse Ox 98.9 F 92 15 130/118 H 96 03/11/20 17:56 03/11/20 18:17 03/11/20 19:01 03/11/20 19:00 03/11/20 19:01 - Laboratory Result Diagrams: 03/11/20 18:10 03/11/20 18:10 Laboratory results interpreted by me: 03/11/20 03/11/20 03/11/20 18:10 18:10 18:10 APTT 23.1 L Sodium 135.8 L Magnesium 2.4 H Urine Protein Urine Ketones Urine Ascorbic Acid 03/11/20 19:20 APTT Sodium Magnesium Urine Protein 30 H Urine Ketones TRACE H Urine Ascorbic Acid 20 H - Diagnostic Test Radiology reviewed: Reports reviewed - Noncontrast head CT normal per radiologist. MRI brain normal per radiologist. Chest x-ray normal per radiologist. - EKG Interpretation by Me Additional EKG results interpreted by me: 03/11/20 19:08 Twelve-lead EKG from 1847 hrs. reviewed contemporaneously by me demonstrated normal sinus rhythm at a rate of 91 normal intervals and a QRS axis of +8 degrees. There are no acute ST/T wave changes. Discharge - Discharge Clinical Impression: Muscular spasm right upper extremity Condition: Stable Disposition: HOME, SELF-CARE Additional Instructions: Take prescribed medications as directed. Return here as needed for new or worsening symptoms. Do not drive an automobile until you have been reevaluated by referral physician. Follow-up with referral physician as instructed. Prescriptions: Lorazepam [Ativan 0.5 mg Tablet] 0.5 mg PO TID PRN #21 tab PRN Reason: Naproxen 500 mg PO BID PRN 7 Days #14 tablet PRN Reason: Referrals: [facility] [Provider Group] - Follow up as needed
[2020-03-11 18:56] LABS: ALCOHOL < 10 mg/dL (NONE DETECTED)
[2020-03-11 19:46] LABS: ALBUMIN 4.2 g/dL (3.5-5.0); ALKALINE PHOSPHATASE 82 U/L (38-126); ANION GAP 8 (5-19); ASPARTATE AMINO TRANSFERASE 28 U/L (14-36); BILIRUBIN,TOTAL 0.3 mg/dL (0.2-1.3); BLOOD UREA NITROGEN 15 mg/dL (7-20); CALCIUM 9.4 mg/dL (8.4-10.2); CARBON DIOXIDE 23 mmol/L (22-30); CHLORIDE 105 mmol/L (98-107); CREATINE KINASE 33 U/L (30-135); GLUCOSE 103 mg/dL (75-110); POTASSIUM 4.6 mmol/L (3.6-5.0); TOTAL PROTEIN 6.9 g/dL (6.3-8.2)
[2020-03-11 19:52] LABS: CREATINE KINASE MB < 0.22 ng/mL (<4.55); TROPONIN I < 0.012 ng/mL
[2020-03-11 20:00] LABS: AMORPHOUS SEDIMENT,URINE TRACE /HPF; APPEARANCE,URINE CLOUDY; BILIRUBIN,URINE NEGATIVE (NEGATIVE); CALCIUM OXALATE CRYSTALS,URINE TOO NUMEROUS TO CNT /HPF; COLOR,URINE YELLOW; GLUCOSE, URINE NEGATIVE (NEGATIVE); KETONES,URINE TRACE mg/dL (NEGATIVE); PROTEIN,URINE 30 mg/dL (NEGATIVE); URINE SPECIFIC GRAVITY 1.027; UROBILINOGEN,URINE NEGATIVE mg/dL (<2.0)
[2020-03-11 20:20] LABS: URINE AMPHETAMINES SCREEN NEGATIVE; URINE BARBITURATES SCREEN NEGATIVE; URINE BENZODIAZEPINES SCREEN NEGATIVE; URINE COCAINE SCREEN NEGATIVE; URINE MARIJUANA (THC) SCREEN NEGATIVE; URINE METHADONE SCREEN NEGATIVE; URINE PHENCYCLIDINE SCREEN NEGATIVE
--- NOTE | 2020-03-11 21:33 | RADIOLOGY REPORT (SQ) ---
MR BRAIN WITHOUT THEN WITH IV CONTRAST EXAM DATE: 03/11/2020 7:02 PM CDT HISTORY: New onset focal seizure. COMPARISON: None. TECHNIQUE: Multisequence, multiplanar MR imaging of the brain was performed without and with the administration of intravenous gadolinium. FINDINGS: The ventricles, cisterns, and sulci are age-appropriate. There is no abnormal dural or parenchymal enhancement. There is no acute infarction, intracranial hemorrhage, extra-axial fluid collection, or mass. The orbits are unremarkable. The calvarium and skull base appear unremarkable. The paranasal sinuses are clear. IMPRESSION: No MR findings to explain patient's symptoms.
[2020-03-11 22:15] VITALS: BP 140/86
--- NOTE | 2020-03-12 07:44 | EKG REPORT ---
SEVERITY:- NORMAL ECG - SINUS RHYTHM : Confirmed by: Lexie Robison MD 12-Mar-2020 07:43:53
[2020-03-12] MEDS ORDERED: NORMAL SALINE 1000 ML 1,000 ML with POTASSIUM CHLORIDE 20 MEQ, MAGNESIUM SULFATE 8 MEQ,... IV SCH ×5 (19:30)
== END 2020-03-11 22:17 | disposition home or self-care (01) ==
LOC: ER 17:55
DX: M62.838 Other muscle spasm (principal); F17.210 Nicotine dependence, cigarettes, uncomplicated; Z90.49 Acquired absence of other specified parts of digestive tract; Z98.51 Tubal ligation status
CPT/HCPCS: 93005; 99285; 96374; 36415; 82553; 80307 ×2; 82550; 83735; 85025; 85610; 85730; 80053; 81001; 84484; 70553; 71045; 70450; 93010; A9576; J2060

== ENCOUNTER 2020-09-14 21:09 | Emergency (ER) | payer SELFPAY ==
--- NOTE | 2020-09-15 00:17 | ER Document Report ---
ED General - General Chief Complaint: Suicidal Ideation Stated Complaint: SUICIDE ATTEMPT Time Seen by Provider: 09/14/20 22:43 TRAVEL OUTSIDE OF THE [place] IN LAST 30 DAYS: No - HPI Context: This is a 35-year-old female who presents to the emergency department complaining of suicidal ideation. Patient states her symptoms just started today. Patient states that "life just does not want to living." When this MD asked further questions with the patient, she abruptly said "I have already answered 20 questions. Why do I have to go through it again." Patient denies visual or auditory hallucinations. Patient denies having a specific plan to hurt herself. Patient does have self-inflicted superficial lacerations on her left wrist. Patient states she is up-to-date on her tetanus booster. Patient denies trouble with headache, visual changes, chest pain, shortness of breath, loss of sense of taste or sense of smell, abdominal pain, nausea, vomiting, diarrhea, difficulty with speech. Patient states nothing makes her symptoms better and when she thinks about her life that is the next her suicidal feelings worse. Patient denies homicidal ideation. Associated symptoms: Other - See HPI Exacerbated by: Other - See HPI Relieved by: Other - See HPI - Related Data Allergies/Adverse Reactions: No Known Allergies Allergy (Verified 06/22/15 23:03) Past Medical History - General Information source: Patient - Social History Smoking Status: Current Every Day Smoker Frequency of alcohol use: Heavy Drug Abuse: Cocaine, Marijuana, Methamphetamine Family History: Reviewed & Not Pertinent Patient has homicidal ideation: Yes - Past Medical History Cardiac Medical History: Denies: Hx Coronary Artery Disease, Hx Heart Attack, Hx Hypertension Pulmonary Medical History: Denies: Hx Asthma, Hx Bronchitis, Hx COPD, Hx Pneumonia Neurological Medical History: Denies: Hx Cerebrovascular Accident, Hx Migraine, Hx Seizures Renal/ Medical History: Denies: Hx Peritoneal Dialysis GI Medical History: Denies: Hx Hepatitis, Hx Hiatal Hernia, Hx Ulcer Musculoskeletal Medical History: Denies Hx Arthritis Psychiatric Medical History: Reports: Hx Anxiety Infectious Medical History: Denies: Hx Hepatitis Past Surgical History: Reports: Hx Cholecystectomy, Hx Tubal Ligation. Denies: Hx Mastectomy, Hx Open Heart Surgery, Hx Pacemaker - Immunizations Hx Diphtheria, Pertussis, Tetanus Vaccination: Yes Review of Systems - Review of Systems Notes: Review of systems as below unless otherwise stated in HPI. CONSTITUTIONAL [No] fever, [No] chills. EYES [No] eye pain. ENT [No] URI symptoms, [No] sore throat, [No] ear pain. CARDIOVASCULAR [No] chest pain, [No] palpitations, [No] edema. RESPIRATORY [No] Cough, [No] SOB, [No] wheezing. GASTROINTESTINAL [No] abdominal pain, [No] nausea, [No] Diarrhea, [No] Vomiting, [No] const ipation, [No] melena, [No] rectal bleeding. GENITOURINARY [No] dysuria, [No] urinary frequency, [No] hematuria, [No] urinary urgency, [No] vaginal discharge, [No] vaginal bleeding. MUSCULOSKELETAL [No] Back pain. SKIN [No] Rash. NEUROLOGIC [No] Headache, [No] recent seizures, [No] paralysis,[No] parathesias. ENDOCRINE [No] polyuria. HEMO/LYMPATIC [No] easy brusing PSYCHIATRIC [+] depression. Physical Exam - Vital signs Vitals: Temp 98.1 F 09/14/20 21:23 - Notes Notes: CONSTITUTIONAL [Vital signs reviewed, Patient appears depressed, Alert and oriented X 3, ] HEAD [Atraumatic, Normocephalic.] EYES [Eyes are normal to inspection, No discharge from eyes, Extraocular muscles intact, Sclera are normal, Conjunctiva are normal.] ENT [External ears normal to inspection, Nose examination normal, Mouth normal to inspection.] NECK [Normal ROM, No jugular venous distention, No meningeal signs, ] RESPIRATORY CHEST [Chest is nontender, Breath sounds normal, No respiratory distress.] CARDIOVASCULAR [RRR, No murmurs, Normal S1 S2, No rub, No gallop.] ABDOMEN [Abdomen is nontender, No pulsatile masses, No other masses, Bowel sounds normal, No distension, No peritoneal signs, No hernias.] BACK [There is no CVA Tenderness, There is no tenderness to palpation, Normal inspection.] UPPER EXTREMITY , No cyanosis, No clubbing, No edema, LOWER EXTREMITY [Inspection normal, No cyanosis, No clubbing, No edema, No calf tenderness, NEURO [No focal motor deficits, No focal sensory deficits, Speech normal.] SKIN Skin exam is significant for superficial lacerations on the patient's left wrist] LYMPHATIC [No adenopathy in neck.] PSYCHIATRIC [Depressed affect ] Course - Re-evaluation Re-evalutation: 09/15/20 06:46 Results of ED MSE discussed with patient. All questions were answered. Patient is medically cleared 09/15/20 06:49 - Vital Signs Vital signs: Temp Pulse Resp BP Pulse Ox 98.1 F 63 14 143/86 H 99 09/14/20 21:30 09/14/20 21:30 09/14/20 21:30 09/14/20 21:30 09/14/20 21:30 - Laboratory Result Diagrams: 09/14/20 22:05 09/14/20 22:05 Laboratory results interpreted by me: 09/14/20 09/14/20 22:05 23:23 Chloride 110 H Carbon Dioxide 20 L ALT 48 H Total Protein 5.9 L Urine Protein 30 H Urine Ketones TRACE H Ur Leukocyte Esterase MODERATE H Salicylates < 1.0 L Acetaminophen < 10 L - EKG Interpretation by Me Additional EKG results interpreted by me: 09/15/20 06:47 EKG obtained on 09/14/2020 at 2155 hrs. was interpreted by this MD. Findings: N ormal sinus rhythm, rate 61, normal axis, OK interval appears to be within normal limits, P waves proceed QRS complexes, QRS complexes appear narrow, QTC is 427, there are no obvious patterns of ST segment elevation, depression or reciprocal changes seen to suggest acute myocardial ischemia or infarction. There is no prior EKG available for comparison. Impression: Normal sinus rhythm with nonspecific ST segments. Discharge - Discharge Clinical Impression: Suicidal ideation, Self-mutilation, Involuntary commitment Condition: Stable Disposition: OTHER
[2020-09-15 00:27] LABS: ABSOLUTE EOSINOPHILS # (AUTO) 0.3 10^3/uL (0.0-0.6); ABSOLUTE MONOCYTES (AUTO) 0.5 10^3/uL (0.1-1.4); HEMOGLOBIN 14.1 g/dL (12.0-15.5); LYMPHOCYTES % (AUTO) 19.1 % (13-45); TOTAL CELLS COUNTED % (AUTO) 100 %
[2020-09-15 00:35] LABS: ABSOLUTE NEUT (AUTO) 7.6 10^3/uL (1.7-8.2); BASOPHILS % (AUTO) 0.4 % (0-2); EOSINOPHILS % (AUTO) 2.6 % (0-6); HEMATOCRIT 41.9 % (36.0-47.0); MEAN CORPUSCULAR HEMOGLOBIN 31.7 pg (27.0-33.4); MEAN CORPUSCULAR HGB CONC 33.7 g/dL (32.0-36.0); MEAN CORPUSCULAR VOLUME 94 fl (80-97); MONOCYTES % (AUTO) 4.8 % (3-13); PLATELET COUNT 291 10^3/uL (150-450); RED BLOOD COUNT 4.46 10^6/uL (3.72-5.28); SEGMENTED NEUTROPHILS % (AUTO) 73.1 % (42-78); WHITE BLOOD COUNT 10.3 10^3/uL (4.0-10.5)
[2020-09-15 00:35] LABS: APPEARANCE,URINE SLIGHTLY-CLOUDY; BILIRUBIN,URINE NEGATIVE (NEGATIVE); COLOR,URINE YELLOW; GLUCOSE, URINE NEGATIVE (NEGATIVE); KETONES,URINE TRACE mg/dL (NEGATIVE); LEUKOCYTE ESTERASE,URINE MODERATE (NEGATIVE); NITRITE,URINE NEGATIVE (NEGATIVE); PROTEIN,URINE 30 mg/dL (NEGATIVE); URINE SPECIFIC GRAVITY 1.026; UROBILINOGEN,URINE NEGATIVE mg/dL (<2.0)
--- NOTE | 2020-09-15 00:35 | EKG REPORT ---
SEVERITY:- NORMAL ECG - SINUS RHYTHM : Confirmed by: Lexie Robison MD 15-Sep-2020 00:34:47
[2020-09-15 00:52] LABS: URINE BARBITURATES SCREEN NEGATIVE; URINE BENZODIAZEPINES SCREEN NEGATIVE; URINE COCAINE SCREEN NEGATIVE; URINE MARIJUANA (THC) SCREEN NEGATIVE; URINE METHADONE SCREEN NEGATIVE; URINE PHENCYCLIDINE SCREEN NEGATIVE
[2020-09-15 01:17] LABS: ALBUMIN 3.6 g/dL (3.5-5.0); ALKALINE PHOSPHATASE 96 U/L (38-126); ANION GAP 8 (5-19); ASPARTATE AMINO TRANSFERASE 28 U/L (14-36); BILIRUBIN,DIRECT 0.1 mg/dL (0.0-0.4); BILIRUBIN,TOTAL 0.5 mg/dL (0.2-1.3); BLOOD UREA NITROGEN 8 mg/dL (7-20); CALCIUM 9.1 mg/dL (8.4-10.2); CARBON DIOXIDE 20 mmol/L (22-30); CHLORIDE 110 mmol/L (98-107); GLUCOSE 94 mg/dL (75-110); POTASSIUM 4.5 mmol/L (3.6-5.0); TOTAL PROTEIN 5.9 g/dL (6.3-8.2)
[2020-09-15 01:18] LABS: ACETAMINOPHEN < 10 ug/mL (10-30); ALCOHOL < 10 mg/dL (NONE DETECTED); SALICYLATE < 1.0 mg/dL (2.0-20.0)
--- NOTE | 2020-09-15 11:09 | ER Document Report ---
Doctor's Note Notes: 09/15/20 11:08 S: Received patient in turnover for nighttime provider team. Rounded on the patient. She was placed under IVC orders last night for suicidal ideation. She reports to me this morning that she continues to feel the same. She states that she just wishes she would not wake up. She is very difficult to talk to and will not provide a lot of information and occasionally not responding at all to questioning. She denies any chest pain, shortness of breath, abdominal pain. She denies being on any current medications. She will not tell me if she has a plan. She is still pending behavioral health to see the patient. O: Constitutional: Alert and oriented x4. Withdrawn and noncommunicative Neck: Supple, no lymphadenopathy Cardio: Regular rate and rhythm; no murmurs, rubs, or gallops Pulmonology: Clear to auscultation throughout, no wheezes, rhonchi, rales Abdomen: Obese, nontender to palpation throughout Psych: Very withdrawn, minimal eye contact. Patient unwilling to engage with clinician. Noncommunicative. States she wishes that she would never wake up but will not have further conversation as to why she is feeling that way. A/P: Patient on IVC. Awaiting behavioral health assessment and recommendations. We will continue to monitor patient. 09/15/20 17:15 Patient has been evaluated by the behavioral health team. She will remain on IVC. They have been able to place her at [facility] under IVC. Request for 1 IM injection of 25 mg of Thorazine. We will continue to monitor until bed becomes available at [facility]. Temp Pulse Resp BP Pulse Ox 98.1 F 67 18 133/79 H 98 09/15/20 05:40 09/15/20 05:40 09/15/20 05:40 09/15/20 05:40 09/15/20 05:40 Intake & Output 09/14/20 09/15/20 09/16/20 06:59 06:59 06:59 Weight 99.79 kg Weight/Height Weight 99.79 kg Height 5 ft 3 in
[2020-09-15] MEDS ORDERED: CHLORPROMAZINE HCL INJ 25 MG/1 ML AMPULE IM ONE (16:17)
[2020-09-15 18:42] VITALS: BP 137/88
--- NOTE | 2020-09-16 14:50 | PSYCHOLOGICAL NOTE ---
Psych Note - Psych Note Date seen by psych provider: 09/15/20 Time seen by psych provider: 11:15 Psych Note: Reason for Consult: Suicidal ideation with attempt Consent Permissions: refuses to provide Patient arrived to [facility] ED via EMS for concerns of suicidal ideation and attempt by cutting her wrist. Patient requested to speak with clinician. Patient is upset when told she must keep door open. Patient reports she needs to talk about needing a shower, times for smoking and medication to "make me numb, because if i can think...that is when I want to..." Patient becomes tearful and refuses to speak further. Patient is alert and oriented to person, place, time and circumstance. Mood is irritable with tearful affect. Patient endorses suicidal ideation with cuts on her wrist. Patient will not answer about homicidal ideation. Delusions appear to be absent. Patient does not appear to be responding to internal stimuli. attention and concentration is poor. Insight, judgment and impulse control is poor. Clinical Presentation: Suicidal Ideation with attempt Tearful affect Mood is irritable IVC Criteria per [place] GS 122C Dangerous to others Within the relevant past the individual No has inflicted or attempted to inflict or threatened to inflict serious bodily harm on another AND No that there is a reasonable probability that this conduct will be repeated as there is an absence of supervision or structure to prevent. OR No has acted in such a way as to create a substantial risk of serious bodily harm to another AND No that there is a reasonable probability that this conduct will be repeated as there is an absence of supervision or structure to prevent. OR No has engaged in extreme destruction of property AND NO that there is a reasonable probability that this conduct will be repeated as there is an absence of supervision or structure to prevent. Previous episodes of dangerousness to others, when applicable, may be considered when determining reasonable probability of future dangerous conduct. Clear, cogent, and convincing evidence that an individual has committed a homicide in the relevant past is prima facie evidence of dangerousness to others. Dangerous to self Within the relevant past the individual has done any of the following: acted in such a way as to show ALL of the following: No The individual would be unable without care, supervision, and the continued assistance of others not otherwise available, to exercise self-co ntrol, judgment, and discretion in the conduct of the individual's daily responsibilities and social relations or to satisfy the individual's need for nourishment, personal or medical care, mcfp, or self-protection and safety. AND No There is a reasonable probability of the individual suffering serious physical debilitation within the near future unless adequate treatment is given. A showing of behavior that is grossly irrational, of actions that the individual is unable to control, of behavior that is grossly inappropriate to the situation, or of other evidence of severely impaired insight and judgment shall create a prima facie inference that the individual is unable to care for himself or herself. OR YES has attempted suicide or threatened suicide AND YES that there is a reasonable probability of suicide unless adequate treatment is given as there is an absence of supervision or structure to prevent suicide of patient who has made an attempt, serious gesture or threat. Patient reports suicidal ideation and presented with cuts to her wrist. Patient refuses to engage and is very tearful. OR No has mutilated himself or herself or attempted to mutilate himself or herself AND No that there is a reasonable probability of serious self-mutilation unless adequate treatment is given as there is an absence of supervision or structure to prevent. NOTE: Previous episodes of dangerousness to self, when applicable, may be considered when determining reasonable probability of physical debilitation, suicide, or self-mutilation. Medication recommendations per [facility] contracted psychiatrist are as follows: Thorazine 25mg IM once Impression\\plan: Patient is recommended for IVC; paperwork is signed, faxed to marketing planning manager and placed in patient's chart. Patient refuses to fully engage with clinician and will only say she "wants to " then rolled over and cried into her pillow. Patient has been accepted to [facility]; transportation has been requested. Dr. Galicia was consulted to care management of this patient; attending physicians in agreement with recommendations and disposition. Case management: [id number] Paperwork is faxed to [facility] for placement consideration. [id number] Spoke with [facility], patient accepted but it is requested transportation to be at 730pm due to staffing concerns
== END 2020-09-15 18:24 | disposition other institution (70) ==
LOC: ER 21:09
DX: Z04.6 Encounter for general psychiatric examination, requested by authority (principal); S61.512A Laceration without foreign body of left wrist, initial encounter; X78.8XXA Intentional self-harm by other sharp object, initial encounter; F17.200 Nicotine dependence, unspecified, uncomplicated; F14.10 Cocaine abuse, uncomplicated; F15.10 Other stimulant abuse, uncomplicated; F12.10 Cannabis abuse, uncomplicated; F32.9 Major depressive disorder, single episode, unspecified; Z75.1 Person awaiting admission to adequate facility elsewhere
CPT/HCPCS: 93005; 99285; 96372; 36415; 80307 ×4; 85025; 80053; 81001; 93010; J3230